=== PATIENT | male | born 1945 | race Hispanic/Latino ===

== ENCOUNTER 2024-10-05 03:39 | Observation (INO) | payer MEDICARE ==
[2024-10-05] MEDS ORDERED: Ondansetron PF 4 MG/2 ML Vial IVP PRN (05:13)
[2024-10-05] MEDS ORDERED: Calcium Carbonate 500 MG ChewTAB PO PRN (05:13)
[2024-10-05] MEDS ORDERED: Acetaminophen 325 MG TAB PO PRN (05:13)
[2024-10-05] MEDS ORDERED: Acetaminophen 650 MG Suppository PR PRN (05:13)
[2024-10-05] MEDS ORDERED: Ondansetron ODT 4 MG TAB PO PRN (05:13)
[2024-10-05] MEDS ORDERED: Heparin 10,000 UNITS/ 10 ML VIAL SLOW IVP SCH (05:15)
[2024-10-05] MEDS ORDERED: Nitroglycerin 0.4 MG TAB (25 Tab Bottle) SL PRN (05:15)
[2024-10-05 05:26] VITALS: BMI 31.2
[2024-10-05] MEDS: Heparin 25,000 units/D5W 500 ML IVPB SCH (06:27)
[2024-10-05 06:32] LABS: #Basophils Less than 0.03 10x3/uL (0.0-0.2); %Basophils 0.2 % (0.0-1.0); %Eosinophils 1.5 % (0.0-10.0); %Lymphocytes 38.7 % (21.0-51.0); %Monocytes 10.9 % (0.0-10.0); %Neutrophils 48.2 % (42.0-75.0); Hematocrit 37.7 % (42.0-52.0); Hemoglobin 12.5 g/dL (14.0-18.0); Mean Corpuscular HGB CONC 33.2 g/dL (32.0-36.0); Mean Corpuscular Hemoglobin 32.8 pg (27.0-31.0); Mean Platelet Volume 8.8 fL (7.4-10.4); Platelet Count 154 10x3/uL (130-400); Red Blood Cell (RBC) Count 3.81 mill/uL (4.70-6.10)
[2024-10-05 06:34] LABS: Hematocrit 38.7 % (42.0-52.0); Platelet Count 164 10x3/uL (130-400)
[2024-10-05 06:51] LABS: Anion Gap 12 mmol/L (10-20); BUN (Urea Nitrogen) 16 mg/dL (8.4-25.7); Calc. Creatinine Clearance 97 mL/min (70-130); Calcium 8.8 mg/dL (7.8-10.44); Carbon Dioxide 23 mmol/L (23-31); Chloride 110 mmol/L (98-107); Estimated GFR 90; Glucose 107 mg/dL (83-110); Potassium 3.8 mmol/L (3.5-5.1); Sodium 141 mmol/L (136-145)
[2024-10-05 06:54] LABS: Troponin I Less than 0.010 ng/mL (< 0.028)
[2024-10-05] MEDS ORDERED: hydrALAZINE 20 MG/ML VIAL SLOW IVP PRN (08:02)
[2024-10-05] MEDS: Metoprolol Tartrate 25 MG TAB PO SCH (08:39)
[2024-10-05] MEDS: Aspirin Chewable 81 MG TAB PO SCH (08:42)
[2024-10-05] MEDS: Sertraline 25 MG TAB PO SCH (08:42)
[2024-10-05] MEDS: Amlodipine 5 MG TAB PO SCH (08:43)
[2024-10-05] MEDS: Atorvastatin Calcium 20 MG TAB PO SCH (08:43)
[2024-10-05] MEDS: Famotidine/PF 20 mg/2ml Vial SLOW IVP SCH (08:49)
[2024-10-05] MEDS ORDERED: Levothyroxine Sodium 75 MCG TAB PO SCH (09:00)
[2024-10-05] MEDS ORDERED: TRAMADOL 200 MG PO SCH (09:00)
[2024-10-05] MEDS: Famotidine 20 MG TAB PO SCH (11:20)
[2024-10-05 12:38] LABS: Troponin I Less than 0.010 ng/mL (< 0.028)
[2024-10-05] MEDS ORDERED: Diazepam 5 MG TAB PO SCH (19:00)
[2024-10-05] MEDS ORDERED: Communication Order-Pharmacy FS SCH (19:00)
[2024-10-06] MEDS: Sodium Chloride 0.9% 1,000 ML IV SCH (00:19)
[2024-10-06 03:50] LABS: #Basophils Less than 0.03 10x3/uL (0.0-0.2); %Basophils 0.2 % (0.0-1.0); %Eosinophils 1.9 % (0.0-10.0); %Lymphocytes 31.1 % (21.0-51.0); %Neutrophils 55.4 % (42.0-75.0); Hematocrit 41.1 % (42.0-52.0); Hemoglobin 13.7 g/dL (14.0-18.0); Mean Corpuscular HGB CONC 33.3 g/dL (32.0-36.0); Mean Corpuscular Hemoglobin 32.4 pg (27.0-31.0); Mean Corpuscular Volume 97.2 fL (78.0-98.0); Mean Platelet Volume 8.5 fL (7.4-10.4); Platelet Count 153 10x3/uL (130-400); RBC Distribution Width 12.8 % (11.5-14.5); Red Blood Cell (RBC) Count 4.23 mill/uL (4.70-6.10)
[2024-10-06 04:36] LABS: Anion Gap 14 mmol/L (10-20); BUN (Urea Nitrogen) 15 mg/dL (8.4-25.7); Calc. Creatinine Clearance 93 mL/min (70-130); Calcium 8.8 mg/dL (7.8-10.44); Carbon Dioxide 23 mmol/L (23-31); Chloride 110 mmol/L (98-107); Estimated GFR 89; Glucose 89 mg/dL (83-110); Potassium 4.3 mmol/L (3.5-5.1); Sodium 143 mmol/L (136-145)
[2024-10-06] MEDS: Levothyroxine Sodium 75 MCG TAB PO SCH (05:37)
[2024-10-06 12:15] VITALS: BP 134/63; TEMP 97.9
[2024-10-06] MEDS ORDERED: Atropine Sulfate 1 mg/10 ml Syringe ONE (12:27)
[2024-10-06] MEDS ORDERED: PHENYLEPHRINE-NS 100 MCG/ML 10 ML SYRINGE ONE (12:28)
[2024-10-06] MEDS ORDERED: fentaNYL 50 mcg/mL 1 mL Vial ONE (12:28)
[2024-10-06] MEDS ORDERED: Nitroglycerin 50 MG/250 ML BOT 0 ML ONE (12:28)
[2024-10-06] MEDS ORDERED: Midazolam HCl 2 mg/2 ml Vial ONE (12:28)
[2024-10-06] MEDS ORDERED: Heparin 10,000 UNITS/ 10 ML VIAL ONE (12:28)
[2024-10-06] MEDS ORDERED: Iopamidol 370 76% 100 ML VIAL ONE (14:23)
[2024-10-06] MEDS ORDERED: Acetaminophen/Codeine 30-300mg Tablet PO PRN ×2 (14:50→14:58)
[2024-10-06] MEDS ORDERED: Sodium Chloride 0.9% 200 ML IV PRN (14:50)
[2024-10-06] MEDS ORDERED: Sodium Chloride 0.9% 200 ML IV SCH (15:00)
[2024-10-06] MEDS: Sodium Chloride 0.9% 500 ML IV SCH (16:50)
== END 2024-10-06 18:48 | disposition home or self-care (01) ==
LOC: 2NO 05:07
PROVIDERS: ADMIT Student in an Organized Health Care Education/Training Program; ATTEND Student in an Organized Health Care Education/Training Program
PROC: 4A023N7 Measurement of Cardiac Sampling and Pressure, Left Heart, Percutaneous Approach (ICD-10-PCS; principal; 2024-10-06)
DX: R07.9 Chest pain, unspecified (principal); R06.02 Shortness of breath; I10 Essential (primary) hypertension; I25.10 Atherosclerotic heart disease of native coronary artery without angina pectoris; E78.00 Pure hypercholesterolemia, unspecified; E03.9 Hypothyroidism, unspecified; F32.A Depression, unspecified; G47.30 Sleep apnea, unspecified; Z95.1 Presence of aortocoronary bypass graft; Z79.890 Hormone replacement therapy; Z79.899 Other long term (current) drug therapy; I24.9 Acute ischemic heart disease, unspecified; E78.5 Hyperlipidemia, unspecified; K21.9 Gastro-esophageal reflux disease without esophagitis; Z79.02 Long term (current) use of antithrombotics/antiplatelets; Z79.82 Long term (current) use of aspirin
CPT/HCPCS: 71045; 80048 ×2; 80053; 84484 ×2; 85014; 85018; 85025 ×3; 85049; 85347; 85730 ×3; 93005 ×2; 93459; 96374 ×2; 96375; 96376; 99285; C1769 ×2; C1887; G0378 ×2; J1644 ×3; J2250; J3010; J3490 ×2; J7030; Q9967; 36415; 93458; 99152; 99153; J0461